=== PATIENT | male | born 1990 | race African-American/Black ===

== ENCOUNTER 2019-07-27 09:43 | Emergency (ER) | payer SELFPAY | END 2019-07-27 10:12 | disposition home or self-care (01) | LOC: ERS 09:43 | DX: R41.82 Altered mental status, unspecified (principal); F17.210 Nicotine dependence, cigarettes, uncomplicated | CPT/HCPCS: 99284 ==

== ENCOUNTER 2021-02-23 19:47 | Emergency (ER) | payer SELFPAY ==
[2021-02-23] MEDS ORDERED: Boostrix 0.5 ML (Tdap) VIAL ONE (20:04)
== END 2021-02-23 21:00 | disposition home or self-care (01) ==
LOC: ERS 19:47
DX: S06.9X9A Unspecified intracranial injury with loss of consciousness of unspecified duration, initial encounter (principal); S05.41XA Penetrating wound of orbit with or without foreign body, right eye, initial encounter; F17.290 Nicotine dependence, other tobacco product, uncomplicated; Y08.89XA Assault by other specified means, initial encounter
CPT/HCPCS: 12052; 70450; 90471; 90715

== ENCOUNTER 2021-03-16 12:26 | Emergency (ER) | payer SELFPAY | END 2021-03-16 13:41 | disposition home or self-care (01) | LOC: ERS 12:26 | DX: S01.112D Laceration without foreign body of left eyelid and periocular area, subsequent encounter (principal); F17.290 Nicotine dependence, other tobacco product, uncomplicated; X58.XXXD Exposure to other specified factors, subsequent encounter ==

== ENCOUNTER 2021-08-30 14:30 | Emergency (ER) | payer SELFPAY ==
[2021-08-30] MEDS ORDERED: cefTRIAXone\\ROCEPHIN 1 GM VIAL ONE (15:02)
[2021-08-30] MEDS ORDERED: Doxycycline 100 MG CAP PO SCH (15:15)
[2021-08-30 15:30] LABS: Bacteria/HPF None Seen HPF (None Seen); Bilirubin Negative (Negative); Blood, Urine Negative (Negative); Clarity Clear (Clear); Glucose, Urine (Dipstick) Normal (Negative); Ketone, Urine Trace mg/dL (Negative); Leukocyte Negative Leu/uL (Negative); Nitrite Negative (Negative); Protein, Urine (Dipstick) 30 mg/dL (Neg-Trace); RBC/HPF 0-3 HPF (0-3); Squamous Epithelial 0-3 HPF (0-3); WBC/HPF 0-3 HPF (0-3)
[2021-08-31 22:48] LABS: Chlam.trachomatis by PCR,Urine Not Detected (NotDetected)
== END 2021-08-30 15:50 | disposition home or self-care (01) ==
LOC: ERS 14:30
DX: F16.10 Hallucinogen abuse, uncomplicated (principal); R30.0 Dysuria
CPT/HCPCS: 81003; 81015; 87491; 87591; 96372; 99283; J0696

== ENCOUNTER 2022-09-26 13:17 | Emergency (ER) | payer SELFPAY ==
[~2022-09-26 13:17] MED LIST: Iopamidol-370 76% 500 ML 1 ML ONE
[2022-09-26] MEDS ORDERED: diphenhydrAMINE 50 MG/ML VIAL ONE (13:41)
[2022-09-26] MEDS ORDERED: Haloperidol Lactate 5 MG/ML VIAL ONE (13:41)
[2022-09-26 13:51] LABS: Actual Bicarbonate (HCO3v) 28 mEq/L (22-28); Analyzer IN Cardio ER; Base Excess 1.1 mEq/L (-2.0 to +3.0); Calcium, Ionized (venous) 1.12 mmol/L (1.16-1.32); Chloride (VBG) 102 mmol/L (98-106); Hemoglobin (Hb) 14.8 g/dL (13.2-17.3); Potassium (VBG) 3.68 mmol/L (3.70-5.30); Sodium 136.8 mmol/L (133-146); pH (venous) 7.33 (7.32-7.43)
[2022-09-26 13:52] LABS: #Eosinphils 0.1 thou/uL (0.0-0.7); #Lymphocytes 1.2 thou/uL (1.20-3.40); #Monocytes 0.5 thou/uL (0.11-0.59); #Neutrophils 7.1 thou/uL (1.40-6.50); %Basophils 0.1 % (0.0-1.0); %Eosinophils 0.9 % (0.0-10.0); %Lymphocytes 13.8 % (21.0-51.0); %Monocytes 5.5 % (0.0-10.0); %Neutrophils 79.7 % (42.0-75.0); Hemoglobin 13.9 g/dL (14.0-18.0); Mean Corpuscular HGB CONC 32.2 g/dL (32.0-36.0); Mean Corpuscular Hemoglobin 32.1 pg (27.0-31.0); Mean Platelet Volume 8.2 fL (7.4-10.4); Platelet Count 231 10x3/uL (130-400); RBC Distribution Width 12.6 % (11.5-14.5); Red Blood Cell (RBC) Count 4.33 mill/uL (4.70-6.10); White Blood Cell (WBC) Count 8.9 10x3/uL (4.8-10.8)
[2022-09-26 14:15] LABS: ALT (SGPT) 21 U/L (8-55); AST (SGOT) 24 U/L (5-34); Albumin 3.9 g/dL (3.5-5.0); Alkaline Phosphatase 55 U/L (40-110); Anion Gap 10 mmol/L (10-20); BUN (Urea Nitrogen) 9 mg/dL (8.9-20.6); Bilirubin, Total 0.4 mg/dL (0.2-1.2); Calc. Creatinine Clearance 0 mL/min (70-130); Calcium 8.6 mg/dL (7.8-10.44); Carbon Dioxide 28 mmol/L (22-29); Chloride 104 mmol/L (98-107); Estimated GFR 98; Globulin 2.2 g/dL (2.4-3.5); Glucose 100 mg/dL (70-105); Lipase 20 U/L (8-78); Potassium 3.6 mmol/L (3.5-5.1); Protein, Total 6.1 g/dL (6.0-8.3); Sodium 138 mmol/L (136-145)
[2022-09-26 14:35] LABS: Acetaminophen Less than 10.0 mcg/mL (10.0-30.0); Alcohol Less than 10 mg/dL (Less than 10); Salicylate Less than 8.0 mg/dL (15.0-30.0)
== END 2022-09-26 15:45 | disposition home or self-care (01) ==
LOC: ERS 13:17
DX: R11.10 Vomiting, unspecified (principal)
CPT/HCPCS: 36415; 74177; 80053; 80307; 82805; 83605; 83690; 85025; 96361; 96374; 96375; J1200; J1630; Q9967

== ENCOUNTER → 2024-10-05 | Emergency (ER) | payer SELFPAY ==
[~2024-10-05] MED LIST changes: +Boostrix 0.5 ML (Tdap) VIAL (>/=7 yrs of age) ONE; -Iopamidol-370 76% 500 ML 1 ML ONE
[2024-10-05 12:49] LABS: #Basophils Less than 0.03 10x3/uL (0.0-0.2); #Eosinophils Less than 0.03 10x3/uL (0.0-0.7); %Basophils 0.3 % (0.0-1.0); %Eosinophils 0.3 % (0.0-10.0); %Lymphocytes 15.2 % (21.0-51.0); %Neutrophils 78.1 % (42.0-75.0); Hematocrit 43.9 % (42.0-52.0); Hemoglobin 14.8 g/dL (14.0-18.0); Mean Corpuscular HGB CONC 33.7 g/dL (32.0-36.0); Mean Corpuscular Hemoglobin 30.8 pg (27.0-31.0); Mean Corpuscular Volume 91.5 fL (78.0-98.0); Mean Platelet Volume 10.1 fL (7.4-10.4); Platelet Count 248 10x3/uL (130-400); RBC Distribution Width 13.5 % (11.5-14.5)
[2024-10-05 13:14] LABS: ALT (SGPT) 41 U/L (8-55); AST (SGOT) 33 U/L (5-34); Alkaline Phosphatase 78 U/L (40-110); Anion Gap 15 mmol/L (10-20); BUN (Urea Nitrogen) 16 mg/dL (8.9-20.6); Bilirubin, Total 0.7 mg/dL (0.2-1.2); Calc. Creatinine Clearance 0 mL/min (70-130); Calcium 8.7 mg/dL (7.8-10.44); Carbon Dioxide 21 mmol/L (22-29); Chloride 107 mmol/L (98-107); Estimated GFR 62; Globulin 3.2 g/dL (2.4-3.5); Glucose 139 mg/dL (70-105); Potassium 3.8 mmol/L (3.5-5.1); Protein, Total 7.2 g/dL (6.0-8.3); Sodium 139 mmol/L (136-145)
[2024-10-05 13:16] LABS: Acetaminophen Less than 10 mcg/mL (Less than 10); Alcohol Less than 10.0 mg/dL (Less than 10); CK (CPK) 250 U/L (30-200); Lipase 17 U/L (8-78); Salicylate Less than 8.0 mg/dL (Less than 8.0)
== END ==
LOC: ERS 11:59
DX: S00.01XA Abrasion of scalp, initial encounter (principal); T14.8XXA Other injury of unspecified body region, initial encounter; R41.82 Altered mental status, unspecified; Z23 Encounter for immunization; W19.XXXA Unspecified fall, initial encounter
CPT/HCPCS: 36415; 70450; 71045; 72125; 80053; 80307; 82550; 83690; 84146; 85025; 90471; 90715; 93005